=== PATIENT | female | born 1955 | race Caucasian/White ===

== ENCOUNTER 2017-10-09 15:49 | Emergency (ER) | payer MEDICAID ==
[~2017-10-09] VITALS: Ht 154.9 cm; Wt 54.4 kg
--- NOTE | 2017-10-09 15:59 | NUR ---
PT AMBULATED TO BED 12.
[2017-10-09 16:00] VITALS: BP 143/89
--- NOTE | 2017-10-09 16:19 | NUR ---
62/F BIB AMBULANCE FROM [facility] C/O UNWITNESSED FALL X 20 MINUTES PRIOR TO ARRIVAL TO ER TODAY; PT STATES LOC AT TIME OF INCIDENT; PT [id number]&OX4 ON ARRIVAL. ERMD NOTIFIED OF PATIENT STATUS.
--- NOTE | 2017-10-09 16:25 | NUR ---
Patient being evaluated by physician at bedside.
[2017-10-09 17:04] LABS: BASOPHILS # (AUTO) 0.3 K/uL (0.00-0.22); EOSINOPHILS # (AUTO) 0.3 K/uL (0-0.4); HEMATOCRIT 35.5 % (36-48); HEMOGLOBIN 12.1 g/dL (12.0-16.0); LYMPHOCYTES # (AUTO) 2.9 K/uL (2.5-16.5); MEAN CORPUSCULAR HEMOGLOBIN 31 pg (27-31); MEAN CORPUSCULAR HGB CONC 34 g/dL (33-37); MEAN CORPUSCULAR VOLUME 91 fL (80-94); MONOCYTES # (AUTO) 0.8 K/uL (0.8-1.0); NEUTROPHILS # (AUTO) 4.2 K/uL (1.8-7.7); PLATELET COUNT (AUTO) 152 K/uL (140-450); RED BLOOD CELL COUNT(AUTO) 3.92 MIL/uL (4.20-5.40); WHITE BLOOD COUNT (AUTO) 8.5 K/uL (4.8-10.8)
[2017-10-09 17:25] LABS: ALBUMIN 2.6 g/dL (3.4-5.0); ANION GAP 9.5 (8-16); CARBON DIOXIDE 30.3 mmol/L (21-32); CREATININE 0.9 mg/dL (0.6-1.3); PHENYTOIN (DILANTIN) 6.2 ug/ml (10.0-20.0); POTASSIUM 3.8 mmol/L (3.5-5.1); TOTAL BILIRUBIN 0.2 mg/dL (0.0-1.0)
--- NOTE | 2017-10-09 17:45 | NUR ---
PT RESTING; VSS; PATIENT POSITIONED FOR COMFORT; HOB ELEVATED; BEDRAILS UP X2; BED DOWN. ER MD MADE AWARE OF PT STATUS.
[2017-10-09] MEDS ORDERED: PHENYTOIN 100 MG CAPER PO ONE (17:50)
[2017-10-09 18:19] VITALS: BP 131/71
--- NOTE | 2017-10-09 18:19 | NUR ---
Patient discharged with v/s stable. Written and verbal after care instructions given and explained. Patient verbalized understanding. Ambulatory with steady gait. All questions addressed prior to discharge. Advised to follow up with PMD.
== END 2017-10-09 18:19 | disposition home or self-care (01) ==
LOC: MED 15:49
DX: G40.909 Epilepsy, unspecified, not intractable, without status epilepticus (principal); Z91.14 Patient's other noncompliance with medication regimen; F41.9 Anxiety disorder, unspecified; F31.9 Bipolar disorder, unspecified; Z88.5 Allergy status to narcotic agent; Z88.6 Allergy status to analgesic agent
CPT/HCPCS: 36415; 80053; 80185; 85025; 99284